=== PATIENT | male | born 1950 | race Caucasian/White ===

== ENCOUNTER → 2021-06-27 | Outpatient (CLI) | payer MEDICARE, OTHER ==
[~2021-06-27] MED LIST: MULTIVITAMINS1 EAC8 PO
== END ==
LOC: RAD 11:24
PROVIDERS: ATTEND Internal Medicine
DX: R06.02 Shortness of breath (principal)
CPT/HCPCS: 71046

== ENCOUNTER → 2021-07-25 | Day surgery (SDC) | payer MEDICARE, OTHER ==
[2021-07-23 08:37] LABS: BASOPHILS % 0.6 % (0.0-1.0); EOSINOPHILS # (AUTO) 0.1 (0.0-0.4); HEMATOCRIT 42.7 % (38.2-49.6); HEMOGLOBIN 14.8 g/dL (14.0-18.0); LYMPHOCYTES # (AUTO) 1.4 (1.0-3.2); LYMPHOCYTES % 26.4 % (18.0-39.1); MEAN CORPUSCULAR HEMOGLOBIN 30.6 pg (28-32); MEAN CORPUSCULAR HGB CONC 34.7 g/dL (31-35); MEAN CORPUSCULAR VOLUME 88.4 fL (81-99); MONOCYTES # (AUTO) 0.6 (0.2-0.8); MONOCYTES % 10.4 % (4.4-11.3); NEUTROPHILS # (AUTO) 3.2 (2.1-6.9); NEUTROPHILS % 60.2 % (38.7-80.0); PLATELET COUNT 180 x10e3/uL (140-360); RED BLOOD COUNT 4.83 x10e6/uL (4.3-5.7); RED CELL DISTRIBUTION WIDTH 13.2 % (11.7-14.4)
[2021-07-23 09:15] LABS: ALBUMIN/GLOBULIN RATIO 1.2 (0.8-2.0); ANION GAP 13.6 mmol/L (8-16); CALCIUM 9.2 mg/dL (8.4-10.2); CREATININE, SERUM 1.06 mg/dL (0.72-1.25); POTASSIUM 4.6 mmol/L (3.5-5.1)
[2021-07-23 09:25] LABS: PROTHROMBIN TIME 13.4 seconds (11.9-14.5)
[2021-07-25] VITALS (9 sets, daily range): BP systolic 123–159; BP diastolic 70–84
[~2021-07-25] MED LIST changes: +ASPIRIN EC81 MG PO; +CENTRUM SILVER1 EAC3 PO; +FENTANYL CITRATE/PF 100MCG/2 ML INJ ONE; +GLUCOSAMIN-CHO1 EACH PO; +HEPARIN SOD (PORCINE) 1000 UNIT/ML 30ML ONE; +HEPARIN SOD/SOD CHLORIDE 2,000 ML ONE; +IOPAMIDOL 370 MG/ML 200 ML INFUS..BTL INJ ONE; +LIDOCAINE HCL 2% LOCAL 20 ML VIAL ONE; +MIDAZOLAM HCL 2 MG/2 ML VIAL ONE; +NITROGLYCERIN/D5W 200 MCG/ML 250 ML ONE; +SODIUM CHLORIDE 0.9% 1000ML 1,000 ML ONE; +TESTOSTERONE GEL TOP; +VERAPAMIL HCL 2.5 MG/ML 2 ML VIAL ONE
== END | disposition home or self-care (01) ==
LOC: CATH LAB 08:29
PROVIDERS: ATTEND Internal Medicine Cardiovascular Disease
DX: I25.118 Atherosclerotic heart disease of native coronary artery with other forms of angina pectoris (principal); I10 Essential (primary) hypertension; R09.89 Other specified symptoms and signs involving the circulatory and respiratory systems; Z01.812 Encounter for preprocedural laboratory examination; Z20.822 Contact with and (suspected) exposure to COVID-19; Z79.82 Long term (current) use of aspirin; Z68.32 Body mass index [BMI] 32.0-32.9, adult
CPT/HCPCS: 36415; 80053; 85025; 85610; 93458; C1887; J1644; J2001; J2250; J3010; J7030; Q9967; U0002; 99152

== ENCOUNTER → 2023-03-17 | Outpatient (CLI) | payer MEDICARE, OTHER ==
[~2023-03-17] MED LIST changes: -FENTANYL CITRATE/PF 100MCG/2 ML INJ ONE; -HEPARIN SOD (PORCINE) 1000 UNIT/ML 30ML ONE; -HEPARIN SOD/SOD CHLORIDE 2,000 ML ONE; +IOPAMIDOL 370 MG/ML 100 ML INFUS..BTL INJ ONE; -IOPAMIDOL 370 MG/ML 200 ML INFUS..BTL INJ ONE; -LIDOCAINE HCL 2% LOCAL 20 ML VIAL ONE; -MIDAZOLAM HCL 2 MG/2 ML VIAL ONE; -NITROGLYCERIN/D5W 200 MCG/ML 250 ML ONE; -SODIUM CHLORIDE 0.9% 1000ML 1,000 ML ONE; +SODIUM CHLORIDE 0.9% 250ML 250 ML ONE; -VERAPAMIL HCL 2.5 MG/ML 2 ML VIAL ONE
[2023-03-17 15:25] LABS: CREATININE, SERUM 1.19 mg/dL (0.72-1.25)
== END ==
LOC: CT 14:22
PROVIDERS: ATTEND Urology
DX: R31.21 Asymptomatic microscopic hematuria (principal)
CPT/HCPCS: 36415; 74178; 82565; 84520; J7050; Q9967